=== PATIENT | male | born 1950 | race Caucasian/White ===

== ENCOUNTER 2016-12-13 05:44 | Day surgery (SDC) | payer OTHER ==
[~2016-12-13] VITALS: Ht 188 cm; Wt 97.3 kg
[2016-12-13] MEDS ORDERED: SODIUM CHLORIDE 0.9% 1,000 ML IV ONE ×2 (05:54→06:30)
[2016-12-13] MEDS ORDERED: BENA10TA3 PO (06:20)
[2016-12-13] MEDS ORDERED: ISOS10TA2 PO (06:20)
[2016-12-13] MEDS ORDERED: HYDR25TA PO (06:20)
[2016-12-13] MEDS ORDERED: AMLO-511 PO (06:20)
[2016-12-13] MEDS ORDERED: ASPI-1093 PO (06:20)
[2016-12-13] MEDS ORDERED: MONT10TA21 PO (06:21)
[2016-12-13] MEDS ORDERED: VITA150T PO (06:21)
[2016-12-13] MEDS ORDERED: GARL1000 PO (06:21)
[2016-12-13] MEDS ORDERED: PARO20TA24 PO (06:21)
[2016-12-13] MEDS ORDERED: ATEN50TA PO (06:21)
[2016-12-13] MEDS ORDERED: MOME13HF IH (06:21)
[2016-12-13] MEDS ORDERED: TRAZ-147 PO (06:21)
[2016-12-13] MEDS ORDERED: CALC-789 PO (06:21)
[2016-12-13] MEDS ORDERED: ASCO500 PO (06:21)
[2016-12-13] MEDS ORDERED: OMEG-12 PO (06:21)
[2016-12-13] MEDS ORDERED: MULT-71 PO (06:21)
[2016-12-13] MEDS ORDERED: UBID10CA PO (06:21)
[2016-12-13] MEDS ORDERED: HYDR-3971 PO (06:21)
[2016-12-13] MEDS ORDERED: SIMV-260 PO (06:21)
[2016-12-13] MEDS ORDERED: MIDAZOLAM HCL 2 MG/2 ML VIAL ONE (07:51)
[2016-12-13] MEDS ORDERED: FentaNYL CITRATE-PF 100 MCG/2 ML VIAL ONE (07:51)
[2016-12-13] MEDS ORDERED: MethylPREDNISolone SOD SUCC 125 MG/2 ML VIAL IVP ONE (08:30)
[2016-12-13] MEDS ORDERED: MethylPREDNISolone SOD SUCC 125 MG/2 ML VIAL ONE (09:02)
[2016-12-13] MEDS ORDERED: LIDOCAINE HCL 2% 30 ML JELLY TP ONE (12:01)
[2016-12-13] MEDS ORDERED: LIDOCAINE HCL 4% 50 ML SOLUTION TP ONE (12:01)
[2016-12-13] MEDS ORDERED: ALBUTEROL SULFATE 2.5 MG/0.5 ML NEB SOLUTION NEB ONE (12:01)
[2016-12-13] MEDS ORDERED: BENZOCAINE 20% 50 MCG/SPRAY 57 GM TP ONE (12:01)
[2016-12-13] MEDS ORDERED: EPINEPHrine 1:1,000 [1 MG/ML] AMP IVP ONE (12:01)
[2016-12-13] MEDS ORDERED: OXYGEN THERAPY IH SCH (20:00)
== END 2016-12-13 09:55 | disposition home or self-care (01) ==
LOC: SURGERY 05:44
PROVIDERS: ATTEND Internal Medicine Critical Care Medicine
DX: J38.4 Edema of larynx (principal); B37.0 Candidal stomatitis; E78.00 Pure hypercholesterolemia, unspecified; C80.1 Malignant (primary) neoplasm, unspecified; D73.89 Other diseases of spleen; F17.200 Nicotine dependence, unspecified, uncomplicated; F12.90 Cannabis use, unspecified, uncomplicated; Z95.5 Presence of coronary angioplasty implant and graft; Z98.890 Other specified postprocedural states
CPT/HCPCS: 31623; 31624; 71010; 87015; 87070; 87101; 87205; 87220; 93005; J0171; J2250; J2930; J3010; J7030; 87106; 88108; 88312